=== PATIENT | female | born 1960 | race Caucasian/White ===

== ENCOUNTER 2020-01-17 16:51 | Inpatient (IN) | payer BC, SELFPAY ==
[2020-01-17] VITALS (11 sets, daily range): BP systolic 90–121; BP diastolic 62–75; PULSE 62–108; RESP 15–27; TEMP 36.6–36.9; O2SAT 88–100; BMI 27.4
--- NOTE | ~2020-01-17 | XR_ITS ---
XR chest 1V portable DATE: 01/17/2020 17:52 INDICATION: Respiratory distress. History of COPD. TECHNIQUE: Portable upright AP views on 01/17/2020 at 1747 hours COMPARISON: 10/22/2019 PA and lateral chest FINDINGS: There is bilateral hyperinflation, consistent with COPD. There is patchy infiltrate in the right mid and lower lung rehman, suggesting pneumonia. Normal heart size. There is bilateral pulmonary artery prominence consistent with pulmonary hyperten joesph. There is mild blunting of both costophrenic angles, right greater than left. IMPRESSION: Patchy infiltrate in the right mid and lower lung zones, likely secondary to pneumonia COPD with pulmonary hypertension Reviewed, dictated and finalized at location B. [facility]NER IMPRESSION: Patchy infiltrate in the right mid and lower lung zones, likely sec ondary to pneumonia COPD with pulmonary hypertension
--- NOTE | 2020-01-17 17:17 | ECG_ITS ---
Measurements Intervals [place] Rate: 100 P: 75 MI: 152 QRS: 34 QRSD: 81 T: 54 QT: 315 QTc: 408 Interpretive Statements SINUS TACHYCARDIA POSSIBLE RIGHT ATRIAL ENLARGEMENT POSSIBLE LEFT ATRIAL ENLARGEMENT DELAYED PRECORDIAL R/S TRANSITION LOW QRS VOLTAGE IN LIMB LEADS BASELINE ARTIFACT- I, II, III, AVR, AVL, AVF, V1-V6 BORDERLINE ECG Electronically Signed On 01-17-2020 17:56:39 GUM SCORING MACHINE OPERATOR by Levy Ryan D.O.
[2020-01-17] MEDS: IPRATROPIUM BR 0.02% INH SOLN 0.5 MG/2.5 ML VIAL 1.5 MG INHALATION (17:18)
[2020-01-17] MEDS: ALBUTEROL SULFATE NEB 2.5 MG/0.5 ML INH 15 MG INHALATION (17:18)
--- NOTE | 2020-01-17 17:23 | ED.SOB ---
HPI - SOB/Dyspnea General Chief Complaint: Shortness of Breath/Dyspnea Stated Complaint: SOB Time Seen by Provider: 01/17/20 17:04 Source: patient and RN notes reviewed Mode of arrival: ambulatory Limitations: no limitations History of Present Illness HPI Narrative: Pt is a 59 y/o female presenting to the ED c/o SOB. Pt's at bedside reports the pt has been experiencing SOB for about a week. Pt states she is currently on 3L of home oxygen due to End-stage COPD. Pt notes she is currently seeing Dr. Ballesteros as her PCP and Dr. Ajith Naqvi as her Mason Liner at [facility]. Pt's reports the pt experienced a subjective fever 2 days ago but pt denies CP or N/V. Per , the pt has a Hx of [place] with 1 cardiac stent, and notes the pt was placed on Bipap for 2 weeks during her last hospital admission. Pertinent past history: COPD Onset (ago): week(s) (1) Associated symptoms: fever (Subjective (per )) Related Data Home Medications Medication Instructions Recorded Confirmed albuterol sulfate 90 mcg/actuation 2 puff INHALATION Q4-6H PRN gm 10/20/19 01/17/20 aerosol inhaler carvedilol 3.125 mg tablet 3.125 mg PO Q12H 10/20/19 01/17/20 clopidogrel 75 mg tablet 75 mg PO DAILY 10/20/19 01/17/20 sertraline 100 mg tablet 100 mg PO DAILY 10/20/19 01/17/20 atorvastatin 80 mg tablet 80 mg PO DAILY 10/27/19 01/17/20 aspirin [Adult Aspirin Regimen] 81 mg PO DAILY 01/17/20 01/17/20 codeine-guaifenesin [Virtussin AC] 10 ml PO .HS PRN 01/17/20 01/17/20 insulin glargine [Basaglar KwikPen 15 unit SUB-Q HS 01/17/20 01/17/20 U-100 Insulin] sacubitril-valsartan [Entresto] 1 tablet PO BID 01/17/20 01/17/20 Allergies Allergy/AdvReac Type Severity Reaction Status Date / Time amoxicillin Allergy Unknown rash Verified 01/17/20 15:50 Review of Systems Review of Systems: All systems reviewed & are unremarkable except as noted in HPI and below Constitutional: Constitutional: Reports fever(s) (Subjective) Cardiovascular: Cardiovascular: Denies chest pain Respiratory: Respiratory: Reports dyspnea Gastrointestinal: Gastrointestinal: Denies nausea and Denies vomiting [facility] Past Medical History Medical History (Updated 01/17/20 @ 21:04 by Angelo Matute MD) Anxiety Breast cancer CHF (congestive heart failure) COPD exacerbation Emphysema of lung History of chemotherapy Pneumonia Seizures Surgical History Surgical History (Updated 01/17/20 @ 21:02 by Angelo Matute MD) H/O hernia repair H/O mastectomy H/O: hysterectomy History of appendectomy History of cholecystectomy Stented coronary artery Family History Family History Sibling Hypertension Mother Cerebrovascular accident Family history of heart disease in male family member before age 55 Hypertension Family history of diabetes mellitus in first degree relative Family history of malignant neoplasm of ovary, Onset Age: 37 Diabetes mellitus Father Family history of lung cancer, Onset Age: 50 Family history of malignant neoplasm of urinary bladder, Onset Age: 50 Family history of chronic obstructive pulmonary disease Grandparent Family history of malignant neoplasm of ovary Social History Social History Smoking packs per day: 2 Smoking cigarettes per day: 40.0 Years smoked: 40 Smoking pack-years: 80.00 Smoking status: Former smoker Tobacco type: cigarettes Smoking end date: 09/30/19 Alcohol intake: never Substance use: never Gender identity (if verbalized by the patient): Female Agree to blood products: Yes Exam Const: General: alert and ill appearing Orientation/consciousness: patient oriented x3 HENMT: Mouth: Yes moist mucous membranes Eyes: Conjunctivae: conjunctivae normal Pupils: Equal, round and reactive pupils present EOM: EOMs intact bilaterally Chest: Chest palpation & ins
[2020-01-17 17:25] LABS: Alveolar/Arterial O2 Gradient 110.7 mmHg; Base Excess ABG 5.6 mEq/l (+/-2.0); Carboxyhemoglobin 0.1 % THb (0-2.0); Fractional Inspired Oxygen 36 %; HCO3 ABG 33.7 mEq/l (22.0-26.0); Methemoglobin ABG 0.2 %THb (0-1.5); Oxygen Content ABG 15.4 %vol (16.0-22.0); Oxygen Saturation ABG 90.7 % (95.0-100.0); Oxyhemoglobin 92.6 % THb (90.0-100.0); PO2 ABG 66.5 mmHg (80.0-100.0); PO2 FiO2 Ratio Arterial Blood 1.85 %; Reduced Hemoglobin 7.1 %THb (0-5.0); Total Hemoglobin 11.8 g/dL (12.0-18.0)
[2020-01-17] MEDS: LACTATED RINGERS 1,000 ML 999 ML IV CONT (17:25)
[2020-01-17] MEDS: methylPREDNISolone SOD SUCC 125 MG VIAL IV PUSH (17:25)
[2020-01-17 17:26] LABS: Device NASAL CANNULA; Modified Allen's Test Pass; PCO2 ABG 68.5 mmHg (35.0-45.0); Site Drawn RIGHT RADIAL
[2020-01-17 17:31] LABS: Basophils Absolute Auto 0.1 K/mm3 (0.0-0.1); Basophils Percent Auto 0.4 % (0.2-1.2); Eosinophils Percent Auto 0.1 % (0-4.4); Hematocrit 36.7 % (37.0-47.0); Immature Granulocyte Absolute 0.05 K/mm3 (0.00-0.031); Immature Granulocyte Percent A 0.4 % (0-0.5); Lymphocytes Absolute Auto 0.94 K/mm3 (0.9-3.2); Lymphocytes Percent Auto 6.8 % (18.3-44.2); Mean Corpuscular Hemoglobin 27.2 pg (26-34); Mean Corpuscular Volume 90.6 fl (80-100); Mean Platelet Volume 10.2 fl (7.4-10.4); Monocytes Absolute Auto 1.3 K/mm3 (0.1-0.6); Monocytes Percent Auto 9.1 % (2.6-8.5); Neutrophils Absolute Auto 11.6 K/mm3 (1.3-6.7); Neutrophils Percent Auto 83.2 % (45.5-73.1); Platelet Count Result 411 k/mm3 (150-375); Red Blood Count 4.05 M/mm3 (4.2-5.4); Red Cell Distribution Width 12.8 % (11.5-14.5); White Blood Count 13.9 K/mm3 (4.5-10.0)
[2020-01-17 17:42] LABS: Partial Thromboplastin Time 25.5 SECONDS (22.3-36.8); Prothrombin Time 12.9 Seconds (11.1-14.7)
[2020-01-17 18:16] LABS: Lactic Acid Reflex 1.4 mmol/L (0.7-2.1)
[2020-01-17 18:21] LABS: Alanine Aminotransferase 25 U/L (4-35); Albumin Level 4.2 g/dL (3.5-5.1); Alkaline Phosphatase 116 U/L (38-126); Aspartate Amino Transferase 35 U/L (14-36); Bilirubin,Total 0.6 mg/dL (0.2-1.3); Blood Urea Nitrogen 26 mg/dL (7-17); Calcium 9.8 mg/dL (8.4-10.2); Carbon Dioxide 31 mmol/L (22-30); Chloride 94 mmol/L (98-107); Estimated CRCL calculation 52 ml/min; Estimated Glomerular Filt Rate 57; Glucose 187 mg/dL (65-105); Potassium 4.3 mmol/L (3.4-5.0); Sodium 137 mmol/L (137-145)
--- NOTE | 2020-01-17 20:15 | ADMGEN ---
This patient, Kim Forman, was admitted to IMU Room 211-01. Patient/family oriented to hospital policies and general routines including ID bracelet, bed and alarms, visiting hours, pain management, procedures, bathroom and other care routines, personal items, smoking policy, room service/diet, and visiting hours. Valuables list has been completed. Information on how to activate the Rapid Response Team has been discussed. Patient/Family are encouraged to report perceived risks to care and to ask questions if they do not understand what they are told or what they should do.
[2020-01-17 20:25] LABS: CRP 8.3 mg/dL (<1.0)
--- NOTE | 2020-01-17 20:48 | PM.IMHP ---
H&P: HPI History of Present Illness Chief complaint: acute on chronic respiratory failure Narrative: This is a 59 year old female with known severe COPD and chronic respiratory failure on 3L of oxygen at home at all times who has been recently hospitalized twice over the past 6 months for COPD exacerbation and returned to the hospital today with a complaint of worsening shortness of breath, wheezing, and productive cough of 1 week duration. The patient's last hospitalization was at [facility], [place] recently where she normally sees her Psychology Fellow, Dr. Naqvi. The patient reports feeling hot and believes she had a fever two days ago (Friday) although since then she hasn't had any. She has not had any chest pain, palpitations, abdominal pain, nausea, vomiting, diarrhea, LE swelling, LE redness, LE pain, or rectal bleeding. She claims to have quit smoking in 2014. The patient was evaluated in the ER today and found to be in acute hypercapnic respiratory failure. She was initiated on Bipap. She states that she has been approved for home Bipap although she hasn't started it yet. CXR demonstrated patchy infiltrate in the right mid and lower lung zones. The patient has been started on IV antibiotics and admitted to the hospital for further care. Review of Systems Review of Systems: All systems reviewed & are unremarkable except as noted in HPI and below PMFSH Past Medical History Medical History (Updated 01/17/20 @ 21:04 by Angelo Matute MD) Anxiety Breast cancer CHF (congestive heart failure) COPD exacerbation Emphysema of lung History of chemotherapy Pneumonia Seizures Surgical History Surgical History (Updated 01/17/20 @ 21:02 by Angelo Matute MD) H/O hernia repair H/O mastectomy H/O: hysterectomy History of appendectomy History of cholecystectomy Stented coronary artery Family History Family History Sibling Hypertension Mother Cerebrovascular accident Family history of heart disease in male family member before age 55 Hypertension Family history of diabetes mellitus in first degree relative Family history of malignant neoplasm of ovary, Onset Age: 37 Diabetes mellitus Father Family history of lung cancer, Onset Age: 50 Family history of malignant neoplasm of urinary bladder, Onset Age: 50 Family history of chronic obstructive pulmonary disease Grandparent Family history of malignant neoplasm of ovary Social History Social History Smoking packs per day: 2 Smoking cigarettes per day: 40.0 Years smoked: 40 Smoking pack-years: 80.00 Smoking status: Former smoker Tobacco type: cigarettes Smoking end date: 09/30/19 Alcohol intake: never Substance use: never Gender identity (if verbalized by the patient): Female Agree to blood products: Yes Meds Home Medications and Allergies Home Medications Medication Instructions Recorded Confirmed Type albuterol sulfate 90 mcg/actuation 2 puff INHALATION Q4-6H PRN gm 10/20/19 01/17/20 History aerosol inhaler carvedilol 3.125 mg tablet 3.125 mg PO Q12H 10/20/19 01/17/20 History clopidogrel 75 mg tablet 75 mg PO DAILY 10/20/19 01/17/20 History sertraline 100 mg tablet 100 mg PO DAILY 10/20/19 01/17/20 History atorvastatin 80 mg tablet 80 mg PO DAILY 10/27/19 01/17/20 History albuterol sulfate 0.63 mg/3 mL 0.63 mg INHALATION Q4-6H PRN #75 ml 12/17/19 01/17/20 Rx solution for nebulization fluticasone fur. 100 mcg-umeclid 1 inhalation INHALATION DAILY #60 01/10/20 01/17/20 Rx 62.5 mcg-vilant 25 mcg each inhalat.powder aspirin [Adult Aspirin Regimen] 81 mg PO DAILY 01/17/20 01/17/20 History codeine-guaifenesin [Virtussin AC] 10 ml PO .HS PRN 01/17/20 01/17/20 History insulin glargine [Basaglar KwikPen 15 unit SUB-Q HS 01/17/20 01/17/20 History U-100 Insulin] sacubitril-valsartan [Entresto] 1 tablet
--- NOTE | 2020-01-17 21:19 | PCRCNOTE ---
PATIENT TRANSPORTED FROM ER TO IMU 11 ON 4LPM NC. BIPAP TAKEN TO ROOM AND PLACED ON PATIENT WITH ORDERED SETTINGS OF 18/8. NIV CHECK COMPLETED. RT GREYSON Blue NOTIFIED OF PATIENT ADMISSION
[2020-01-17] MEDS: IPRATROPIUM BR 0.02% INH SOLN 0.5 MG/2.5 ML VIAL INHALATION (22:34)
[2020-01-17] MEDS: ALBUTEROL SULFATE NEB 2.5 MG/0.5 ML INH 5 MG INHALATION (22:34)
[2020-01-17 22:52] LABS: Alveolar/Arterial O2 Gradient 107.7 mmHg; Base Excess ABG 2.5 mEq/l (+/-2.0); Device NON-INVASIVE VENT; Fractional Inspired Oxygen 35 %; HCO3 ABG 29.4 mEq/l (22.0-26.0); Modified Allen's Test Pass; Non-Invasive Expiratory Pressure 8 CMH2O; Non-Invasive Inspiratory Pressure 18 CMH2O; Non-Invasive Vent Rate 4 /MIN; Oxygen Content ABG 15.8 %vol (16.0-22.0); Oxygen Saturation ABG 94.2 % (95.0-100.0); PCO2 ABG 56.3 mmHg (35.0-45.0); PO2 ABG 76.4 mmHg (80.0-100.0); PO2 FiO2 Ratio Arterial Blood 2.18 %; Site Drawn LEFT RADIAL; Total Hemoglobin 11.9 g/dL (12.0-18.0); pH ABG 7.335 (7.350-7.450)
[2020-01-18] VITALS (23 sets, daily range): BP systolic 91–113; BP diastolic 52–72; PULSE 82–112; RESP 17–24; TEMP 36.1–36.8; O2SAT 94–100
[2020-01-18] MEDS: methylPREDNISolone SOD SUCC 125 MG VIAL 60 MG IV PUSH ×4 (00:10→18:20)
[2020-01-18] MEDS: ALBUTEROL SULFATE NEB 2.5 MG/0.5 ML INH 5 MG INHALATION ×4 (03:06→21:19)
[2020-01-18] MEDS: IPRATROPIUM BR 0.02% INH SOLN 0.5 MG/2.5 ML VIAL INHALATION ×4 (03:07→21:19)
[2020-01-18 04:51] LABS: Basophils Percent Auto 0.1 % (0.2-1.2); Hematocrit 32.9 % (37.0-47.0); Hemoglobin 9.9 g/dL (12.0-15.0); Immature Granulocyte Absolute 0.04 K/mm3 (0.00-0.031); Immature Granulocyte Percent A 0.4 % (0-0.5); Lymphocytes Absolute Auto 0.53 K/mm3 (0.9-3.2); Lymphocytes Percent Auto 5.9 % (18.3-44.2); Mean Corpuscular HGB Conc 30.1 g/dl (32-36); Mean Corpuscular Hemoglobin 27.2 pg (26-34); Mean Corpuscular Volume 90.4 fl (80-100); Mean Platelet Volume 9.8 fl (7.4-10.4); Monocytes Absolute Auto 0.1 K/mm3 (0.1-0.6); Monocytes Percent Auto 1.5 % (2.6-8.5); Neutrophils Absolute Auto 8.2 K/mm3 (1.3-6.7); Neutrophils Percent Auto 92.1 % (45.5-73.1); Platelet Count Result 352 k/mm3 (150-375); Red Blood Count 3.64 M/mm3 (4.2-5.4); Red Cell Distribution Width 12.6 % (11.5-14.5); White Blood Count 8.9 K/mm3 (4.5-10.0)
[2020-01-18 05:10] LABS: Hemoglobin A1C 5.8 % (<5.7)
[2020-01-18 05:14] LABS: Alanine Aminotransferase 25 U/L (4-35); Albumin Level 3.7 g/dL (3.5-5.1); Alkaline Phosphatase 90 U/L (38-126); Aspartate Amino Transferase 28 U/L (14-36); Bilirubin,Total 0.2 mg/dL (0.2-1.3); Blood Urea Nitrogen 26 mg/dL (7-17); Calcium 9.7 mg/dL (8.4-10.2); Carbon Dioxide 37 mmol/L (22-30); Chloride 94 mmol/L (98-107); Estimated CRCL calculation 49 ml/min; Estimated Glomerular Filt Rate 51; Glucose 203 mg/dL (65-105); Potassium 4.5 mmol/L (3.4-5.0); Sodium 138 mmol/L (137-145)
[2020-01-18 08:16] LABS: Glucose Point of Care 195 (65-105)
[2020-01-18] MEDS: carvediloL 3.125 MG TABLET PO (09:03)
[2020-01-18] MEDS: ATORVASTATIN 40 MG TABLET 80 MG PO (09:03)
[2020-01-18] MEDS: SACUBITRIL/VALSARTAN 24-26 MG TABLET 1 TAB PO ×2 (09:04→18:21)
[2020-01-18] MEDS: SERTRALINE HCL 50 MG TABLET 100 MG PO (09:04)
[2020-01-18] MEDS: CLOPIDOGREL BISULFATE 75 MG TABLET PO (09:05)
[2020-01-18] MEDS: ASPIRIN 81 MG ENTERIC TABLET PO (09:05)
--- NOTE | 2020-01-18 09:11 | PM.IMPN ---
Progress Note: A&P Assessment and Plan (1) Acute respiratory failure with hypercapnia: Code(s): J96.02 - Acute respiratory failure with hypercapnia Status: Acute Assessment and Plan: due to cap with copd exacerbation treat as below (2) Community acquired pneumonia: Qualifiers: Laterality: right Lung location: middle lobe of lung Qualified Code(s): J18.9 - Pneumonia, unspecified organism Code(s): J18.9 - Pneumonia, unspecified organism Status: Acute Assessment and Plan: continue azithromycin, ceftriaxone (3) COPD exacerbation: Code(s): J44.1 - Chronic obstructive pulmonary disease with (acute) exacerbation Status: Acute Assessment and Plan: continue bronchodilators, steroids, pulmonary toilet (4) CHF (congestive heart failure): Qualifiers: Heart failure type: unspecified Heart failure chronicity: chronic Qualified Code(s): I50.9 - Heart failure, unspecified Code(s): I50.9 - Heart failure, unspecified Status: Chronic Assessment and Plan: clinically euvolemic (5) Seizures: Code(s): R56.9 - Unspecified convulsions Status: Chronic Assessment and Plan: monitor for recurrence Subjective Date/time seen: 01/18/20 09:11 Interval history: Admitted 01/17 with increased ORTIZ and productive cough. Has yet to get her home bipap. Did well on bipap overnight. Less cough and sob today. Review of Systems Review of Systems: All systems reviewed & are unremarkable except as noted in HPI and below Exam Narrative: Exam Narrative: HEENT: EOMI, PERRL, pharyngeal mucosa pink and intact NECK: No JVD CHEST: Increased APD, prolonged expiratory phase, bilateral rhonchi, scattered coarse crackles, mild tachypnea. HEART: NL S1/S2, regular, no murmur ABDOMEN: BS+, soft, nontender, no mass, no bruits EXTREMITIES: No cyanosis, edema, or clubbing NEUROLOGIC: CN intact and symmetric to inspection. MUSCULOSKELETAL: Tone and strength symmetric. PSYCH: Alert. Oriented to person, place, and time. Objective Data Vital Signs Vital Signs: Vital Signs - 24 hr 01/17/20 17:01 01/17/20 17:06 01/17/20 18:00 Temperature 97.9 F Pulse Rate 108 H 103 H 103 H Respiratory Rate 18 22 H 23 H Blood Pressure 90/75 L 90/75 L Pulse Oximetry 88 L 95 100 01/17/20 19:45 01/17/20 20:10 01/17/20 20:23 Temperature 98.3 F Pulse Rate 62 97 99 Respiratory Rate 22 H 27 H 25 H Blood Pressure 112/62 121/63 Pulse Oximetry 95 97 94 01/17/20 22:00 01/17/20 22:40 01/17/20 22:50 Temperature Pulse Rate 103 H 96 96 Respiratory Rate 15 15 Blood Pressure Pulse Oximetry 94 01/17/20 23:00 01/17/20 23:43 01/18/20 00:00 Temperature 98.4 F Pulse Rate 101 H 95 89 Respiratory Rate 20 20 Blood Pressure 107/67 Pulse Oximetry 96 01/18/20 02:00 01/18/20 03:05 01/18/20 03:07 Temperature Pulse Rate 82 87 87 Respiratory Rate 21 H 20 Blood Pressure Pulse Oximetry 94 01/18/20 03:17 01/18/20 04:00 01/18/20 06:00 Temperature 98.2 F Pulse Rate 89 87 86 Respiratory Rate 20 17 Blood Pressure 111/62 Pulse Oximetry 97 01/18/20 08:37 01/18/20 09:03 Temperature 97.2 F L Pulse Rate 92 112 H Respiratory Rate 22 H Blood Pressure 113/60 Pulse Oximetry 98 Intake/Output Intake/Output: Intake & Output 01/15/20 01/16/20 01/17/20 01/18/20 23:59 23:59 23:59 23:59 Intake Total 1300 150 Balance 1300 150 Meds/Results Medications: Active Medications Generic Name Dose Route Start Last Admin Trade Name [place] PRN Reason Stop Dose Admin Albuterol 5 mg 01/17/20 20:00 01/18/20 03:06 Albuterol Sulf Neb 2.5mg/0.5ml INHALATION 5 mg Q6HRT MEHRAN Administration Aspirin 81 mg 01/18/20 09:00 01/18/20 09:05 Aspirin Ec PO 81 mg DAILY MEHRAN Administration Atorvastatin Calcium 80 mg 01/18/20 09:00 01/18/20 09:03 Lipitor PO 80 mg DAILY MEHRAN Administration Carvedi
[2020-01-18 09:44] LABS: Add Urine Microscopic? YES; Appearance Urine Clear (Clear); Bilirubin Urine Negative (Negative); Blood Urine Negative (Negative); Color Urine Yellow (Yellow); Glucose Urine UA 1+ mg/dL (Negative); Hyaline Casts Urine 30-49 /lpf; Ketones Urine Negative (Negative); Leukocyte Esterase Ur Negative LEU/UL (Negative); Mucus Urine Heavy /lpf; Nitrate Urine Negative (Negative); Protein Urine 2+ mg/dL (Negative); Specific Grav Ur 1.025 (1.001-1.035); Squamous Epithelial Cell Urine Rare /hpf (Few); Urobilinogen Urine Negative mg/dL (<2.0); WBC Urine 0-3 /hpf
[2020-01-18 11:54] LABS: Glucose Point of Care 177 (65-105)
[2020-01-18 18:59] LABS: Glucose Point of Care 192 (65-105)
[2020-01-18] MEDS: INSULIN GLARGINE (*BKC) 100 UNITS/ML 15 UNITS SUB-Q (20:29)
[2020-01-18 20:46] LABS: Glucose Point of Care 291 (65-105)
[2020-01-19] VITALS (19 sets, daily range): BP systolic 92–125; BP diastolic 55–76; PULSE 72–95; RESP 16–23; TEMP 36–37.3; O2SAT 93–98
[2020-01-19] MEDS: methylPREDNISolone SOD SUCC 125 MG VIAL 60 MG IV PUSH ×4 (00:44→18:28)
[2020-01-19] MEDS: ALBUTEROL SULFATE NEB 2.5 MG/0.5 ML INH 5 MG INHALATION ×4 (02:16→19:45)
[2020-01-19] MEDS: IPRATROPIUM BR 0.02% INH SOLN 0.5 MG/2.5 ML VIAL INHALATION ×4 (02:16→19:45)
[2020-01-19 04:54] LABS: Hematocrit 31.9 % (37.0-47.0); Hemoglobin 9.8 g/dL (12.0-15.0); Immature Reticulocyte Fraction 10.2 % (3.0-15.9); Mean Corpuscular HGB Conc 30.7 g/dl (32-36); Mean Corpuscular Hemoglobin 27.5 pg (26-34); Mean Corpuscular Volume 89.6 fl (80-100); Mean Platelet Volume 9.9 fl (7.4-10.4); Platelet Count Result 409 k/mm3 (150-375); Red Blood Count 3.56 M/mm3 (4.2-5.4); Red Cell Distribution Width 12.6 % (11.5-14.5); Reticulocyte Hemoglobin Conten 25.7 pg (28.2-35.7); Reticulocyte Percent 1.13 % (0.7-4.3); Reticulocytes Absolute 0.04 B/L (32.2-175.7); White Blood Count 16.8 K/mm3 (4.5-10.0)
[2020-01-19 05:33] LABS: Blood Urea Nitrogen 39 mg/dL (7-17); Calcium 9.8 mg/dL (8.4-10.2); Carbon Dioxide 35 mmol/L (22-30); Chloride 94 mmol/L (98-107); Estimated CRCL calculation 59 ml/min; Estimated Glomerular Filt Rate > 60; Glucose 192 mg/dL (65-105); Potassium 3.9 mmol/L (3.4-5.0); Sodium 139 mmol/L (137-145)
[2020-01-19 06:24] LABS: Folic Acid 3.2 ng/mL (2.76->20)
[2020-01-19 06:38] LABS: Iron 58 ug/dL (37-170)
[2020-01-19 06:53] LABS: Percent Iron Saturation 23 % (20-50)
[2020-01-19 07:14] LABS: Thyroid Stimulating Hormone Reflex 0.205 uIU/mL (0.465-4.68)
[2020-01-19 07:55] LABS: Glucose Point of Care 180 (65-105)
--- NOTE | 2020-01-19 09:09 | PM.IMPN ---
Progress Note: A&P Assessment and Plan (1) Acute respiratory failure with hypercapnia: Code(s): J96.02 - Acute respiratory failure with hypercapnia Status: Acute Assessment and Plan: due to cap with copd exacerbation treat as below (2) Community acquired pneumonia: Qualifiers: Laterality: right Lung location: middle lobe of lung Qualified Code(s): J18.9 - Pneumonia, unspecified organism Code(s): J18.9 - Pneumonia, unspecified organism Status: Acute Assessment and Plan: continue azithromycin, ceftriaxone (3) COPD exacerbation: Code(s): J44.1 - Chronic obstructive pulmonary disease with (acute) exacerbation Status: Acute Assessment and Plan: continue bronchodilators, steroids, pulmonary toilet (4) CHF (congestive heart failure): Qualifiers: Heart failure type: unspecified Heart failure chronicity: chronic Qualified Code(s): I50.9 - Heart failure, unspecified Code(s): I50.9 - Heart failure, unspecified Status: Chronic Assessment and Plan: clinically euvolemic (5) Seizures: Code(s): R56.9 - Unspecified convulsions Status: Chronic Assessment and Plan: monitor for recurrence Subjective Date/time seen: 01/19/20 09:09 Interval history: Admitted 01/17 with increased ORTIZ and productive cough. Has yet to get her home bipap. Did well on bipap overnight. Still with wheezing, cough. Review of Systems Review of Systems: All systems reviewed & are unremarkable except as noted in HPI and below Exam Narrative: Exam Narrative: HEENT: EOMI, PERRL, pharyngeal mucosa pink and intact NECK: No JVD CHEST: Increased APD, prolonged expiratory phase, bilateral rhonchi, scattered and expiratory wheeze HEART: NL S1/S2, regular, no murmur ABDOMEN: BS+, soft, nontender, no mass, no bruits EXTREMITIES: No cyanosis, edema, or clubbing NEUROLOGIC: CN intact and symmetric to inspection. MUSCULOSKELETAL: Tone and strength symmetric. PSYCH: Alert. Oriented to person, place, and time. Objective Data Vital Signs Vital Signs: Vital Signs - 24 hr 01/18/20 09:37 01/18/20 09:51 01/18/20 12:30 Temperature Pulse Rate 91 101 H 94 Respiratory Rate 20 20 Blood Pressure Pulse Oximetry 98 01/18/20 14:13 01/18/20 14:30 01/18/20 16:00 Temperature Pulse Rate 95 99 90 Respiratory Rate 20 20 Blood Pressure Pulse Oximetry 01/18/20 17:05 01/18/20 19:38 01/18/20 20:20 Temperature 97.0 F L 97.4 F L Pulse Rate 100 108 H Respiratory Rate 20 24 H Blood Pressure 111/59 L 95/72 L 91/59 L Pulse Oximetry 100 94 01/18/20 21:20 01/18/20 21:32 01/18/20 21:33 Temperature Pulse Rate 97 98 98 Respiratory Rate 17 17 17 Blood Pressure Pulse Oximetry 97 01/18/20 23:53 01/19/20 00:10 01/19/20 02:18 Temperature 97.8 F Pulse Rate 97 93 89 Respiratory Rate 22 H 19 23 H Blood Pressure 91/52 L 99/55 L Pulse Oximetry 98 98 01/19/20 02:19 01/19/20 02:28 01/19/20 04:00 Temperature 98.0 F Pulse Rate 89 93 95 Respiratory Rate 23 H 20 18 Blood Pressure 92/57 L Pulse Oximetry 95 97 01/19/20 08:40 Temperature 96.8 F L Pulse Rate 76 Respiratory Rate 18 Blood Pressure 115/73 Pulse Oximetry 95 Intake/Output Intake/Output: Intake & Output 01/16/20 01/17/20 01/18/20 01/19/20 23:59 23:59 23:59 23:59 Intake Total 1300 1130 100 Output Total 150 Balance 1300 1130 -50 Meds/Results Medications: Active Medications Generic Name Dose Route Start Last Admin Trade Name Freq PRN Reason Stop Dose Admin Albuterol 5 mg 01/17/20 20:00 01/19/20 02:16 Albuterol Sulf Neb 2.5mg/0.5ml INHALATION 5 mg Q6HRT MEHRAN Administration Aspirin 81 mg 01/18/20 09:00 01/18/20 09:05 Aspirin Ec PO 81 mg DAILY MEHRAN Administration Atorvastatin Calcium 80 mg 01/18/20 09:00 01/18/20 09:03 Lipitor PO 80 mg DAILY MEHRAN Administration Carvedilol 3.125 mg 02
[2020-01-19] MEDS: ATORVASTATIN 40 MG TABLET 80 MG PO (09:51)
[2020-01-19] MEDS: CLOPIDOGREL BISULFATE 75 MG TABLET PO (09:52)
[2020-01-19] MEDS: ASPIRIN 81 MG ENTERIC TABLET PO (09:52)
[2020-01-19] MEDS: SACUBITRIL/VALSARTAN 24-26 MG TABLET 1 TAB PO ×2 (09:52→18:28)
[2020-01-19] MEDS: SERTRALINE HCL 50 MG TABLET 100 MG PO (09:52)
[2020-01-19] MEDS: carvediloL 3.125 MG TABLET PO ×2 (09:52→21:27)
[2020-01-19 12:05] LABS: Glucose Point of Care 171 (65-105)
--- NOTE | 2020-01-19 12:32 | PC.NURSE ---
Transfer received from IMU room 211. Report received from LEONA Arenas.
[2020-01-19 14:11] LABS: Free T4 Free Thyroxine Reflex 1.12 ng/dL (0.78-2.19)
[2020-01-19 15:56] LABS: Total Triiodothyronine (T3) 0.68 NG/ML (0.97-1.69)
[2020-01-19 18:22] LABS: Glucose Point of Care 177 (65-105)
[2020-01-19 21:05] LABS: Glucose Point of Care 183 (65-105)
[2020-01-19] MEDS: INSULIN GLARGINE (*BKC) 100 UNITS/ML 15 UNITS SUB-Q (21:27)
--- NOTE | 2020-01-19 21:42 | PC.NURSE ---
Called pharmacy @ 1930 to notify of missing azithromycin & rocephin
[2020-01-19 21:49] LABS: Pneumococcal Antigen Urine Not Detected (Not Detected)
[2020-01-20] VITALS (10 sets, daily range): BP systolic 113–138; BP diastolic 60–71; PULSE 67–80; RESP 17–20; TEMP 36.1–37.1; O2SAT 72–98
[2020-01-20] MEDS: methylPREDNISolone SOD SUCC 125 MG VIAL 60 MG IV PUSH ×3 (00:17→11:58)
[2020-01-20] MEDS: IPRATROPIUM BR 0.02% INH SOLN 0.5 MG/2.5 ML VIAL INHALATION ×3 (02:03→13:23)
[2020-01-20] MEDS: ALBUTEROL SULFATE NEB 2.5 MG/0.5 ML INH 5 MG INHALATION ×3 (02:04→13:23)
[2020-01-20 08:20] LABS: Hematocrit 35.1 % (37.0-47.0); Hemoglobin 10.7 g/dL (12.0-15.0); Mean Corpuscular HGB Conc 30.5 g/dl (32-36); Mean Corpuscular Hemoglobin 27.1 pg (26-34); Mean Corpuscular Volume 88.9 fl (80-100); Mean Platelet Volume 9.9 fl (7.4-10.4); Platelet Count Result 445 k/mm3 (150-375); Red Blood Count 3.95 M/mm3 (4.2-5.4); Red Cell Distribution Width 12.6 % (11.5-14.5); White Blood Count 14.7 K/mm3 (4.5-10.0)
[2020-01-20 08:34] LABS: Blood Urea Nitrogen 51 mg/dL (7-17); Calcium 9.6 mg/dL (8.4-10.2); Carbon Dioxide 37 mmol/L (22-30); Chloride 94 mmol/L (98-107); Estimated CRCL calculation 53 ml/min; Estimated Glomerular Filt Rate 57; Glucose 184 mg/dL (65-105); Sodium 141 mmol/L (137-145)
[2020-01-20] MEDS: ASPIRIN 81 MG ENTERIC TABLET PO (08:54)
[2020-01-20] MEDS: SERTRALINE HCL 50 MG TABLET 100 MG PO (08:54)
[2020-01-20] MEDS: CLOPIDOGREL BISULFATE 75 MG TABLET PO (08:54)
[2020-01-20] MEDS: ATORVASTATIN 40 MG TABLET 80 MG PO (08:54)
[2020-01-20] MEDS: SACUBITRIL/VALSARTAN 24-26 MG TABLET 1 TAB PO (08:55)
[2020-01-20] MEDS: carvediloL 3.125 MG TABLET PO (08:55)
[2020-01-20 09:04] LABS: Glucose Point of Care 177 (65-105)
[2020-01-20 10:11] LABS: IFOB Positive Control Positive; Immunochemical Fecal Occult Bl Negative (N)
[2020-01-20 12:45] LABS: Glucose Point of Care 165 (65-105)
--- NOTE | 2020-01-20 16:51 | PM.DS ---
DS: Diagnosis Admitting Diagnosis Admitting Diagnosis: Acute respiratory failure with hypercapnia Discharge Diagnosis (1) Acute respiratory failure with hypercapnia: Code(s): J96.02 - Acute respiratory failure with hypercapnia Status: Acute Assessment and Plan: due to cap with copd exacerbation treat as below on home setting O2 3 LPM by NC (2) Community acquired pneumonia: Qualifiers: Laterality: right Lung location: middle lobe of lung Qualified Code(s): J18.9 - Pneumonia, unspecified organism Code(s): J18.9 - Pneumonia, unspecified organism Status: Acute Assessment and Plan: continue antibiotics for total of 7 days (3) COPD exacerbation: Code(s): J44.1 - Chronic obstructive pulmonary disease with (acute) exacerbation Status: Acute Assessment and Plan: continue bronchodilators, steroids, pulmonary toilet (4) CHF (congestive heart failure): Qualifiers: Heart failure type: unspecified Heart failure chronicity: chronic Qualified Code(s): I50.9 - Heart failure, unspecified Code(s): I50.9 - Heart failure, unspecified Status: Chronic Assessment and Plan: clinically euvolemic (5) Seizures: Code(s): R56.9 - Unspecified convulsions Status: Chronic Assessment and Plan: monitor for recurrence DS: Summary Hospital Course Reason for hospitalization: Dyspnea Hospital Course: Patient presented emergency department with 1 week history of increasing dyspnea productive cough and wheezing. Found to have pulmonary infiltrates. Treated with steroids bronchodilators and azithromycin and ceftriaxone. Gradually improved. Was able to wean to her home oxygen setting of 3 liters/minute by nasal cannula. By day of discharge she was eating well up and about without difficulty while wearing her oxygen and performing her own ADLs. Status at Discharge Functional status at discharge: independent ambulation Overall status at discharge: patient is progressing back to baseline Time Spent with Patient Time attestation: Total time spent providing and/or coordinating discharge services: Exam Narrative: Exam Narrative: HEENT: EOMI, PERRL, pharyngeal mucosa pink and intact NECK: No JVD CHEST: Increased APD, prolonged expiratory phase, mild expiratory wheeze right anterior HEART: NL S1/S2, regular, no murmur ABDOMEN: BS+, soft, nontender, no mass, no bruits EXTREMITIES: No cyanosis, edema, or clubbing NEUROLOGIC: CN intact and symmetric to inspection. MUSCULOSKELETAL: Tone and strength symmetric. PSYCH: Alert. Oriented to person, place, and time. DS: Data Data Completed and Pending Labs on day of discharge: Labs from last 24 hours 01/20/20 01/20/20 01/20/20 12:43 09:46 08:52 WBC RBC Hgb Hct MCV MCH MCHC RDW Plt Count MPV Sodium Potassium Chloride Carbon Dioxide BUN Creatinine Estim Creat Clear Calc Estimated GFR Glucose POC Capillary Glucose 165 H 177 H Calcium Stl Occult Blood (IFOB) Negative Urine Pneumococcal Ag 01/20/20 01/20/20 01/19/20 08:00 08:00 20:49 WBC 14.7 H RBC 3.95 L Hgb 10.7 L Hct 35.1 L MCV 88.9 MCH 27.1 MCHC 30.5 L RDW 12.6 Plt Count 445 H MPV 9.9 Sodium 141 Potassium 4.0 Chloride 94 L Carbon Dioxide 37 H BUN 51 H D Creatinine 1.00 Estim Creat Clear Calc 53 Estimated GFR 57 L Glucose 184 H POC Capillary Glucose 183 H Calcium 9.6 Stl Occult Blood (IFOB) Urine Pneumococcal Ag 01/19/20 01/18/20 18:16 09:19 WBC RBC Hgb Hct MCV MCH MCHC RDW Plt Count MPV Sodium Potassium Chloride Carbon Dioxide BUN Creatinine Estim Creat Clear Calc Estimated GFR Glucose POC Capillary Glucose 177 H Calcium Stl Occult Blood (IFOB) Urine Pneumococcal Ag Not detected Preliminary mi
== END 2020-01-20 17:59 | disposition home or self-care (01) | DRG 189 ==
LOC: ANHED 18:42 → ANH2MED 01-20 12:19 → ANHICU 01-24 10:38 → ANHIMU 01-24 10:38
PROVIDERS: Family Medicine; Admitting Provider Family Medicine; Emergency Provider General Practice; PCP Family Medicine; Visit Provider Internal Medicine
DX: J96.02 Acute respiratory failure with hypercapnia (principal); J18.9 Pneumonia, unspecified organism; I50.9 Heart failure, unspecified; R56.9 Unspecified convulsions; Z92.21 Personal history of antineoplastic chemotherapy; J43.9 Emphysema, unspecified; Z90.10 Acquired absence of unspecified breast and nipple; Z90.49 Acquired absence of other specified parts of digestive tract; Z95.5 Presence of coronary angioplasty implant and graft; I25.10 Atherosclerotic heart disease of native coronary artery without angina pectoris
CPT/HCPCS: 36415; 36600; 71045; 80048; 80053; 81001; 82274; 82375; 82607; 82746; 82805; 83036; 83050; 83540; 83550; 83605; 84439; 84443; 84480; 85025; 85027; 85046; 85610; 85730; 86140; 87040; 87070; 87205; 87804; 87899; 93005; 94003; 94640; 94667; 96361; 96365; 96366; 96375; 99291; A9270; J0456; J0696; J1815; J2930; J7120